=== PATIENT | male | born 1995 | race Caucasian/White ===

== ENCOUNTER 2016-09-06 05:29 | Day surgery (SDC) | payer OTHER ==
[~2016-09-06] VITALS: Ht 188 cm; Wt 65.8 kg
[~2016-09-06 05:29] MED LIST: ADDERALL 10 MG10 MG PO; ADDERALL XR 3030 MG PO; CELEXA20 MG PO
[2016-09-06 06:43] VITALS: BP 108/66; Ht 188 cm; Wt 65.8 kg
--- NOTE | 2016-09-06 08:15 | NUR ---
LOCAL INJECTED AT 0812 PER
--- NOTE | 2016-09-06 10:20 | NUR ---
1015--PT VOIDS WITHOUT DIFFICULTY, IV DAMEON'Shelbi DELEON RN
--- NOTE | 2016-09-06 10:37 | NUR ---
1035--DISCHARGE INSTRUCTIONS GIVEN, PT VERBALIZES UNDERSTANDING. PT OFF UNIT VIA [facility]RI[facility]ELLE. PANCHO GALO
--- NOTE | 2016-09-13 09:50 | OP ---
PATIENT NAME: TYSON RAYMUNDO MEDICAL RECORD: [id number] :89 LOCATION:[facility] ADMISSION DATE: SURGEON: CARLOS ANTOINE DPM DATE OF OPERATION: 09/06/2016 PREOPERATIVE DIAGNOSIS: Painful hardware, left foot. POSTOPERATIVE DIAGNOSIS: Painful hardware, left foot. PROCEDURE: Removal of painful hardware, left foot. ANESTHESIA: Local with IV sedation utilizing lidocaine and Marcaine plain, approximately 10 cc total on the anterior and lateral ankle and sinus tarsi. HEMOSTASIS: Left thigh tourniquet at 350 mmHg. PREOPERATIVE DETAILS: The patient was taken to the OR and placed on the operating table in supine position. This was followed by induction of general anesthesia and infiltration of local anesthetic. The left extremity was then prepped and draped in the usual aseptic technique followed by exsanguination of extremity and inflation of tourniquet. A 15 blade was used to create a 2 cm incision over the sinus tarsi and lateral foot. The incision was deepened down to subcutaneous tissue. The implant was visualized, freed and removed with a hemostat. Wound was flushed. Excellent alignment of the rearfoot was noted. Therefore, another implant was not placed in the sinus tarsi. The wound was flushed. The deep tissue was repaired with 2-0 Vicryl, the subcutaneous tissue with 4-0 Rapide and the skin was closed with 4-0 Rapide in a subcuticular technique followed by Dermabond, Adaptic, 4 x 4s and Conform were used to dress the wound followed by Coban. Tourniquet was deflated. POSTOPERATIVE DETAILS: The patient tolerated the procedure well and left the OR with vital signs stable and vascular status at preop levels. The patient was transferred to recovery per anesthesia in stable condition. TRANSINT:[id number] Voice Confirmation ID: [id number] DOCUMENT ID: [id number] CARLOS ANTOINE DPM at 0950 CC: [id number] DICTATION DATE: 09/06/16 0844 ORNAMENTAL PAINTER: 09/06/16 0927 [facility] 09/06/16 [place] [id number]
== END 2016-09-06 10:35 | disposition home or self-care (01) ==
LOC: D.OPS 05:29 → D.PAN 08:45 → D.OPS 08:50
DX: T84.84XA Pain due to internal orthopedic prosthetic devices, implants and grafts, initial encounter (principal)